=== PATIENT | female | born 1995 | race Caucasian/White ===

== ENCOUNTER 2024-09-12 18:55 | Outpatient (CLI) | payer BC, SELFPAY ==
[2024-09-12 19:25] VITALS: BP 91/55; PULSE 87
--- NOTE | 2024-09-12 19:40 | PC.NURSE ---
Pt reported she fell down staircase at 1815. She reported that she fell mostly on her buttocks and did hit her head initially. Denies headache or pain in head and/or neck. Pain is mostly in her tailbone and right arm. Ice pack applied to tailbone area. Right arm is swollen compared to left arm. Has a bruise on inner forearm and small amount of rug burn. At this time she does not want to be evaluated in the ER. 'I do not feel like it is broken.Ashly in unit and updated.
--- NOTE | 2024-09-12 21:24 | P.OBO_ITS ---
OB Outpatient HPI History of Present Illness History of Present Illness: Gabriel is a 29 year old at 28 0/7 weeks gestation by LMP of 02/27/2024, ROSALBA 12/05/2024, presents post fall for monitoring. The fall occurred at 1815 this evening. She reports she was trying to go down the stairs and missed her step and bounced on her butt the rest of the way. She said approximately 12 steps, about the length of a normal staircase. Her steps are very tall. She does admit she did hit her head initially but not again during the fall. She denies any leaking of fluid or bleeding but has pain in her butt, hip, and right arm. She was unable to sit when she arrived due to the pain but declined evaluation in the ED. She was encouraged to try to lay down on her side for monitoring and rest. She does not feel anything is broken. We reviewed plan for monitoring and s/sx to report. Again offered and recommended ED evaluation but patient declines. Zehra has received care at [facility] in the [facility], although she lives in town. Records were not available upon arrival but were faxed while she was on the unit. Reviewed and sent to scanning. Problem List: GDM, A2 CODY Hx of Triploidy 69, XXY NIPT WNL Blood type: O+, antibody screen negative.??? Hgb (04/26/24): 13.1??? Platelets: 223??? Rubella: Immune??? Varicella: Immune? RPR: non-reactive??? HBsAg: non-reactive??? Hep C: negative? HIV: negative??? GC/Chlamydia: negative/negative? Pap (): [negative]??? Genetic screening: NIPT? 1hr gtt: 155 3 hour gct: fasting 105, 1 hour: 191, 2 hour: 129, 3rd value not collected as there were already 2 abnormals??? Baby moving naturally: Yes Bleeding: No Contractions: No Leaking fluid: No Discharge: No Heartburn: No Back pain: Yes (buttock, hip, and arm) Meds Home Medications and Allergies Allergies Allergy/AdvReac Type Severity Reaction Status Date / Time sulfamethoxazole (From Allergy Mild Verified 09/12/24 22:43 Bactrim) trimethoprim (From Bactrim) Allergy Mild Verified 09/12/24 22:43 PFSH Social History Smoking Status: Former smoker History History 3 Elective abortions Para 1 Spontaneous abortions Hx # Term Pregnancies Ectopic pregnancies Hx # Pregnancies Multiple births Number of Living Children 1 OB - H&P: Exam Physical Exam Vital signs: Pulse BP 87 91/55 L 09/12/24 19:25 09/12/24 19:25 Assessment and Plan Assessment and plan (1) Abdominal trauma: Status: Acute (2) Fall (on) (from) other stairs and steps, initial encounter: Status: Acute (3) : Status: Acute (4) 28 weeks gestation of : Status: Acute Plan at 28 0/7 weeks gestation Fall down stairs, abdominal trauma Blood Type O+, Rhogam not indicated Reviewed warning s/sx of abruption and when to seek emergency care ED evaluation recommended and declined by patient Monitoring x 4 hours post fall per protocol, would only extend if patient had palpable/monitored contractions. D/c home if stable after 4 hours
--- NOTE | 2024-09-12 23:04 | PC.OBNST ---
NST Note NST Note Start: 09/12/24 19:18 Freq: ONCE Status: Active Protocol: Document 09/12/24 23:02 RRP (Rec: 09/12/24 23:04 RR [id number]) NST Note 3 Para (# of births) 1 EDC 12/05/24 Gestational Age In 28 Weeks & 0 Days Weeks & Days Patient Presented Other with Complaint(s) of If Observation after fell downstairs an injury, describe Reactive Yes Appropriate for Yes Gestational Age JARRED Cutler RN Date 09/12/24 Reactive Yes Appropriate for Yes Gestational Age JARRED Hoffmann RN Date 09/12/24 OB NST charge Yes Complete NST Note Yes via Write Note The provider's electronic signature indicates the NST is reactive/appropriate for gestational age. *Note to provider: If an addendum is required, open the patient's chart and click on the note under the Nurse/Allied Health tab.
== END 2024-09-12 22:45 | disposition home or self-care (01) ==
LOC: OB OUT 18:55 → OB 19:02
PROVIDERS: Visit Provider Advanced Practice Midwife
DX: O26.893 Other specified pregnancy related conditions, third trimester (principal); S39.91XA Unspecified injury of abdomen, initial encounter; Z3A.28 28 weeks gestation of pregnancy
CPT/HCPCS: 59025; G0463

== ENCOUNTER 2024-11-11 12:14 | Outpatient (CLI) | payer BC, SELFPAY ==
--- NOTE | 2024-11-11 12:15 | CRLHL7_ITS ---
For Patients: As a result of the Century Cures Act, medical imaging exams and procedure reports are released immediately into your electronic medical record. You may view this report before your referring provider. If you have questions, please contact your health care provider. OB ULTRASOUND BIOPHYSICAL PROFILE ROSALBA by US: 12/05/2024. GA: 36 w, 4 d. Single. Comparison: None. Surgery: None. INDICATION: GDM. TECHNIQUE: Real time macias scale imaging of the fetus was performed. Transabdominal. CERVIX: Not visualized. POSITIONING: Vertex. AMNIOTIC FLUID: 6.1 cm. SDP (N: greater than 2 x 1 cm) BIOPHYSICAL PROFILE: Total score: 2. Gross body movements: 2. tone: 2. Respiratory activity: 2. Amniotic fluid: 2. (SDP N: greater than 2 x 1 cm) Total: 10/11. PLACENTA: Technique: Transabdominal. PLACENTA POSITION: Anterior. DOPPLER: heart rate: 167 bpm. BIOMETRY: BPD: 8.9 cm. 36 w, 0 d, 45 percent. HC: 32.2 cm. 36 w, 2 d, 17 percent. AC: 32.9 cm. 36 w, 6 d, 70 percent. FL: 7.0 cm. 35 w, 6 d, 29 percent. FL/AC ratio: 21.23 percent. HC/AC ratio: 0.98. EFW: 2936 g. Weight: 6 lbs, 8 oz. age by this US: 36 w, 2 d. ROSALBA by this US: 12/07/2024. Percentile by ROSALBA: 50 percent. IMPRESSION: 1. Normal biophysical profile 10/11. 2. Sonographic gestational age 36 weeks 2 days and sonographic due date 12/07/2024. Good correlation with dates. Normal interval growth. 3. Estimated weight 50th percentile. Abdominal circumference 70th percentile. Charanjit Horton M.D. Diagnostic Radiologist [email or web address] JR/Dictated by: Charanjit Horton MD @ 11/11/2024 1:11:00 PM (Electronically Signed)
== END 2024-11-11 12:15 | disposition home or self-care (01) ==
LOC: US 12:14
PROVIDERS: Visit Provider Obstetrics & Gynecology
DX: O24.419 Gestational diabetes mellitus in pregnancy, unspecified control (principal); Z3A.36 36 weeks gestation of pregnancy
CPT/HCPCS: 76815; 76819

== ENCOUNTER 2024-11-13 16:22 | Inpatient (IN) | payer BC, SELFPAY ==
[2024-11-13 16:42] VITALS: BP 125/76; PULSE 106
[2024-11-13 16:49] VITALS: BMI 35.6
--- NOTE | 2024-11-13 16:57 | PM.OBHPLI ---
OB - H&P: HPI Labor/Induction History of Present Illness Time Seen by Provider: 16:58 Date Seen: 11/13/24 Chief complaint: IOL uncontrolled GDMA2 Narrative: Gabriel is a 29 year old 3 para 1 at 36w6d GA by first trimester US, who presents for scheduled induction of labor in the setting of poorly controlled GDM A2. is complicated by GDM A2 (on 91u NPH at bedtime, 4-5 units humalog at meals) and GBS positivity. Early term delivery was recommended in the setting of poor GDM control, please see H&P by Dr. Humphries and office visit by Dr. Borjas for complete details. Patient does endorse intermittent contractions, described as tightening with some cramping. She notes these are regular. Denies vaginal bleeding or leaking of fluid. Endorses active movement. She affirms that she is currently taking 91u NPH insulin QHS. Plan to administer half of this tonight, where we will follow our unit GDM A2 protocol with fasting and 2 hour postprandial blood glucose checks with sliding scale insulin in latent labor. Discussed insulin drip could be required when in active labor pending BG control. Recommend continuous monitoring. Explained she is at an increased risk of shoulder dystocia in the setting of poorly controlled GDM A2. Last growth ultrasound on 10/18/2024: EFW 2270 g at 60th percentile, AC at 89th percentile. Had an 10/11 BPP Here on 11/11, MVP 6.1cm. Specific Issues/Plans Transfer at 36 1/7 weeks gestation from [facility]. [place]. Recently moved to [place]. G 3 P 1011 Partner: [] H&P: 11/08/24, CGM-BRENT visit # GDMA2, history of diet controlled GDM during first Started on insulin at 28 weeks: NPH 12 units at night time, currently utilizing 91 units, told to decrease to 89 units 11/08/24. Also, utilizing Humalog 5 units with breakfast, 4 units with lunch and dinner. Growth US every 4 weeks Twice weekly testing-scheduling form completed 11/08/24 IOL at 37 weeks, IOL request sent for 11/13/24 cervical ripening. # History of miscarriage in 2023 D&C, 67 XXY Reason for which she was originally sent to [facility] during this current . # History of anxiety, MDD currently controlled w/o medication # Adopted # History of migraines labs 12/26/2023 and 04/26/24: Blood type: O positive, antibody screen negative Hemoglobin: 13.1 Platelets: 223 Rubella: Immune Varicella: Not available RPR: Nonreactive Hep B sAg: Negative Hep B sAb: Negative, non immune Hep C Ab: Negative HIV: Negative HbA1c: 5.5 Urine culture: Negative GC/Chlamydia: Negative/negative Genetic testing: [place], low risk-female. 1 hr GTT: 08/27/2024: 155, 3hr GTT: 105/191/129 3rd trimester Hb: 11.3 GBS: 11/05/24 Positive Imaginst trimester: 04/10/2024: Single intrauterine gestation at 5 weeks 6 days, heart rate: 89 beats per minute. ROSALBA: 12/05/2024. Small subchorionic hemorrhage. 04/12/2024: Single living IUP with gestational age consistent of 6 weeks 1 day, heart rate 118 beats per minute. 04/18/2024: Single intrauterine at 7 weeks 0 days, heart rate 132 beats per minute. Indeterminate nodular focus in the mid endometrium measuring up to 1 cm which demonstrates internal vascularity, possibly an endometrial polyp. Recommend post follow-up. 05/06/2024: Single living intrauterine gestation 9 weeks 4 days. heart rate 179 beats per minute. Anatomy scan [facility]: 05/30/2024: Intrauterine at 13 weeks 0 days, early detailed anatomic survey is normal. Anterior placenta. Level 2 ultrasound completed 07/18/2024: Single intrauterine , breech presentation, normal amount of amniotic fluid, anterior placenta with normal umbilical cord insertion. Not previa. BPD: 35 percentile, HC: 25 percentile, AC: 70th percentile, FL: 54th percentile. EFW 70 percentile. Normal anatomy. Normal cervical length. Continue routine care. Growth ultrasounds/ testin09/24/2024: BPD: 6 percentile, HC: 13 percentile, AC: 68 percentile, FL: 40 percentile. EFW: 48th percentile. NAYE: 8.7 cm 10/14/2024: BPP 8/8, NAYE: 14.9 cm. Vertex. 10/18/2024: BPP 8/8, EFW: 2270 g, 60th percentile. BPD: 17 percentile, HC: 21 percentile AC: 89th percentile, SL: 27th percentile. Vertex, NAYE: 15.6 cm. 10/21/2024: BPP 8/8, NAYE: 14.9 cm, vertex. 10/25/2024: BPP 8/8, NAYE: 16 cm, vertex. 10/29/2024: BPP 8/8, NAYE: 11.4 cm, vertex. 11/05/2024: BPP 8/8, NAYE: 15.2 cm, vertex Others: AFP low risk. Vaccinations: COVID: declined Flu: Declined Tdap: 09/16/2024 RSV: [] 32 week mental health: N/A Meds Home Medications and Allergies Home Medications ?Medication ?Instructions ?Recorded ?Confirmed ?Type PNV no.151-iron 27 mg-folic 800 cap PO QDAY 11/08/24 11/11/24 History mcg-omega3 260 vw-omu-qop-fish capsule ( Multi-DHA (with vitamin K)) insulin NPH isoph U-100 human 100 54 unit subcut QPM 11/08/24 11/11/24 History unit/mL subcutaneous suspension (Novolin N NPH U-100 Insulin isophane) insulin lispro 100 unit/mL 4 unit subcut QAM 11/08/24 11/11/24 History subcutaneous pen insulin syr/ndl U100 half leticia #10 ea 11/08/24 11/11/24 History 0.3mL 31 gauge x 15/64 insulin syringe-needle U-100 1 mL #10 ea 11/08/24 11/11/24 History 31 gauge x 15/64 (Ultra-Fine Insulin Syringe) pen needle, diabetic 32 gauge x #1,200 ea 11/08/24 11/11/24 History 5/32 (UltiCare Pen Needle) Allergies Allergy/AdvReac Type Severity Reaction Status Date / Time sulfamethoxazole (From Allergy Mild Verified 11/13/24 16:50 Bactrim) trimethoprim (From Bactrim) Allergy Mild Verified 11/13/24 16:50 OB - H&P: Exam Physical Exam: Vital signs: Pulse BP 106 H 125/76 11/13/24 16:42 11/13/24 16:42 Narrative: Physical exam: General: No acute distress Psych: Alert and oriented x3, full affect Abdomen: Gravid. Otherwise soft and nontender. heart rate: Reactive NST. Baseline of 130 beats per minute, moderate variability, accelerations present, decelerations absent. [place]: Intermittent contractions Cervix: 1/50/-3. Cook catheter placed without difficulty, 60/60cc instilled Presentation: Vertex by SVE OB - Problem Based A/P Additional Plan (1) GDM, class A2: Status: Acute (2) : Status: Acute (3) CODY (generalized anxiety disorder): Status: Acute Plan Gabriel is a 29yo at 36w6d GA admitted for IOL in the setting of poorly controlled GDMA2. is otherwise complicated by anxiety and migraines. - Cervix is 1/50/-3 on admission. We reviewed options for cervical ripening, including PV Cytotec versus catheter with low-dose Pitocin overnight. After discussions of risks/benefits, patient elected to proceed with a Cook placement. This was performed and was uncomplicated at 1715. Plan to start low-dose Pitocin overnight, starting at 0000 given multiparity. - Continuous monitoring ongoing for GDMA2. - Plan to administer half of her outpatient insulin regimen, with 45u NPH at bedtime. She typically takes 91u at bedtime. Plan GDMA2 BG monitoring protocol and sliding scale insulin as needed. - Patient is a candidate for morphine/Vistaril overnight, or pain control per patient preference. Ultimately, desires epidural. - Last growth ultrasound on 10/18/2024: EFW 2270 g at 60th percentile, AC at 89th percentile. - Discussed risks of shoulder dystocia in the setting of suboptimally controlled GDMA2. Explained maneuvers to alleviate shoulder dystocia and maternal/ risks if they were to occur. Patient is appropriately worried about this risk, but I did explained we are supportive of IOL plan as she does have indication for C/S given GDMA2 and normal EFW. - GBS positive, start ampicillin with ROM or initiation of pitocin - BT O+, obtain T/S on admission
[2024-11-13 19:35] VITALS: BP 113/68; PULSE 115; TEMP 37
[2024-11-13] MEDS: INSULIN ASPART 100 UNIT/ML SUBCUT (20:39)
[2024-11-13] MEDS: INSULIN NPH 100 UNIT/ML 45 UNIT SUBCUT (21:38)
[2024-11-14] VITALS (125 sets, daily range): BP systolic 96–145; BP diastolic 50–75; PULSE 72–125; RESP 12–20; TEMP 36.5–37.1; O2SAT 89–100
[2024-11-14] MEDS: LACTATED RINGERS 1000 ML 1,000 ML 75 ML IV (00:17)
[2024-11-14] MEDS: OXYTOCIN 30 unit/500 ML in NS 30 UNIT/500 ML BAG IVPB (00:28)
[2024-11-14 05:39] LABS: Hematocrit* 38.3 % (33.0-51.0); Hemoglobin* 12.8 gm/dL (12.0-16.0); Immature Granulocytes Pct Auto 0.4 %; Mean Corpuscular HGB Conc 33 gm/dL (32-36); Mean Corpuscular Hemoglobin 28 pg (26-34); Mean Corpuscular Volume 84 fL (80-100); RDW Coefficient of Variation % 13.8 % (11.5-15.5); Red Blood Count* 4.57 m/uL (4.00-5.20); White Blood Count* 11.76 K/uL (4.50-11.00)
[2024-11-14 05:43] LABS: Immature Granulocytes Abs Auto 0.00 K/uL (0.00-0.30); Lymphocytes Absolute Auto 1.70 K/uL (0.90-2.90); Slide Review Reflex No
[2024-11-14] MEDS: AMPICILLIN 2 GM in 0.9 % SODIUM CHLORIDE Mini-bag 100 ML IVPB (07:50)
--- NOTE | 2024-11-14 08:12 | P.OBPN_ITS ---
Subjective Time Seen by Provider: 08:12 Date Seen: 11/14/24 Narrative: In pain. Objective Vital Signs: Last Vital Signs Temp 97.9 F 11/14/24 07:29 Pulse 85 11/14/24 07:33 BP 108/67 11/14/24 07:33 Pelvic Exam Dilation (cm): 5.5 Effacement (%): 80 Station: -1 Contractions Monitor mode: External Contraction pattern: Regular Contraction intensity: Strong/Firm Pitocin Rate (mU/min): 8 Assessment Assessment: induction ongoing Station: -1 Status: Category l Heart Rate Baseline: 145 Chief Writer Variability: Moderate (6-25) Monitor Accelerations: Present Monitor Decelerations: None Labor Progress: Adequate Plan Plan: 1. IOL: continue IV Oxytocin titration, progressing well. 2. GBS positive: Antibiotics just started, will await 4 hours for AROM. 3. Pain management: In significant pain, wanted to be checked before moving to epidural, she is ready for epidural now. Nurses will call anesthesia. 4. GDMA2: NPH 45 units given last night, 2 hr after dinner elevated BS at 161 and per sliding scale 4 units of Aspart were given. This am BS normal at 75. Move to active phase of labor monitoring of BS. Will FU closely. 5. Continuous monitoring category 1.
[2024-11-14] MEDS: LACTATED RINGERS 1000 ML 1,000 ML 1200 ML IV (08:38)
[2024-11-14] MEDS: LIDOCAINE 2% (PF) 5 ML VIAL EPIDURAL (09:06)
[2024-11-14] MEDS: ROPIVACAINE 0.2 % PF 10 ML INJ 20 MG EPIDURAL (09:06)
--- NOTE | 2024-11-14 09:12 | P.ANBPRC_ITS ---
[facility] Medical History (Updated 11/08/24 @ 15:17 by Mili Humphries MD) History of miscarriage ?Z87.59 - Personal history of other complications of , childbirth and the puerperium (ICD-10) Benign neoplasm of skin ?D23.9 - Other benign neoplasm of skin, unspecified (ICD-10) Abdominal trauma ?S39.91XA - Unspecified injury of abdomen, initial encounter (ICD-10) Surgical History (Updated 11/08/24 @ 15:31 by Mili Humphries MD) H/O dilation and curettage ?Z98.890 - Other specified postprocedural states (ICD-10) [place] teeth removed ?K08.409 - Partial loss of teeth, unspecified cause, unspecified class (ICD- 10) Family History Mother Depression Schizophrenia Alcohol abuse Bipolar 1 disorder Father Alcohol abuse Sister ADHD Social History (Updated 11/08/24 @ 15:38 by Mili Humphries MD) Narrative: Patient is , no baptist or cultural needs, except blood transfusion in case of an emergency, no chemical radiation exposure, pre vaping, not currently, pre social alcohol use, not currently, no recreational drug use. What is your current living situation?: I presently have a place to live Problems where you live: no known problems In the past 12 months, utilities in danger of being shut off: no In past 12 months, lack of transportation kept you from medical appts, meetings, work, or getting things needed for daily living: no In the past 12 mos, have been you worried that your food would run out before you had money to buy more?: never true In the past 12 mos, the food you bought just didn't last and you didn't have money to buy more?: never true Smoking Status: Never smoker How often does anyone, including family, friends and others, physically hurt you : never How often does anyone, including family, friends and others, insult or talk down to you: never How often does anyone, including family, friends and others, threaten you with harm: never How often does anyone, including family, friends and others, scream or curse at you: never Meds Home Medications and Allergies Home Medications ?Medication ?Instructions ?Recorded ?Confirmed ?Type PNV no.151-iron 27 mg-folic 800 1 cap PO QDAY 11/08/24 11/13/24 History mcg-omega3 260 sd-kse-jxn-fish capsule ( Multi-DHA (with vitamin K)) insulin NPH isoph U-100 human 100 54 unit subcut QPM 0 11/08/24 11/13/24 History unit/mL subcutaneous suspension (Novolin N NPH U-100 Insulin isophane) insulin lispro 100 unit/mL 4 unit subcut QAM 11/08/24 11/13/24 History subcutaneous pen insulin syr/ndl U100 half leticia #10 ea 11/08/24 5 History 0.3mL 31 gauge x 15/64 insulin syringe-needle U-100 1 mL #10 ea 11/08/2411/04 History 31 gauge x 15/64 (Ultra-Fine Insulin Syringe) pen needle, diabetic 32 gauge x #1,200 ea 11/08/2412/28 History 5/32 (UltiCare Pen Needle) Allergies Allergy/AdvReac Type Severity Reaction Status Date / Time sulfamethoxazole (From Allergy Mild Verified 11/13/24 16:50 Bactrim) trimethoprim (From Bactrim) Allergy Mild Verified 11/13/24 16:50 Results Labs Labs: Laboratory Results - last 24 hr 11/14/24 05:25 WBC 11.76 H RBC 4.57 Hgb 12.8 Hct 38.3 MCV 84 MCH 28 MCHC 33 RDW Coeff of Sayda 13.8 Plt Count 178 Neut % (Auto) 75.8 H Lymph % (Auto) 14.8 L [place] % (Auto) 8.4 Eos % (Auto) 0.4 Baso % (Auto) 0.2 Neut # (Auto) 8.90 H Lymph # (Auto) 1.70 [place] # (Auto) 1.00 H Eos # (Auto) 0.00 Baso # (Auto) 0.00 Abs Immat Gran (auto) 0.00 Imm/Tot Granulo (auto) 0.4 Blood Type O Positive Antibody Screen NEGATIVE Vital Signs Vital Signs: Last Vital Signs Temp 97.9 F 11/14/24 07:29 Pulse 88 11/14/24 09:10 Resp 16 11/14/24 08:35 BP 114/59 L 11/14/24 09:10 Pulse Ox 94 11/14/24 09:08 Weight: 94.347 kg Height: 162.56 cm Anesthesia Procedures Epidural Insertion Patient Location: OB Start Time: 08:45 Stop Time: 09:13 Start Date: 11/14/24 Stop Date: 11/14/24 Reason for Block: procedure for pain Patient Position: sitting Performed By: Mika Storm Preanesthetic Checklist: IV checked, risks and benefits discussed, surgical consent, monitors and equipment checked, pre-op evaluation, timeout performed and anesthesia consent Prep: chlorhexidine gluconate Monitoring: blood pressure monitoring, continuous pulse oximetry and heart rate Approach: midline Vertebral Space: lumbar (1-5) Epidural Technique: MARILY air Needle Type: Tuohy needle Injection Technique: continuous catheter Needle gauge: 17 Needle Length (cm): 10 cm Needle Insertion Depth (cm): 7 Catheter Gauge: 19 Catheter Type: multi-orifice Catheter at skin depth (cm): 13 Test Dose Result: negative and lidocaine 1.5% with epinephrine 1 to 200,000
[2024-11-14] MEDS: ROPIVACAINE 0.2% 100 ml 100 ML 12 MG EPIDURAL (09:15)
[2024-11-14] MEDS: AMPICILLIN 1 GM in 0.9 % SODIUM CHLORIDE Mini-bag 100 ML IVPB (11:45)
--- NOTE | 2024-11-14 14:30 | W.PM.OBVAGDE ---
OB Procedure Vag Delivery Mother Details Mother Details: The patient is a 29 year-old, 3, Para 1, admitted on 11/13/24 at 36 6/7 Days gestation for IOL due to uncontrolled GDMA2. IOL started last night with placement of cook catheter and IV Oxytocin. Patient progressed normally and SROM occurred at around 12pm today. Shortly after this started to experience significant pressure and was found completely dilated. Pushed effectively and had a vaginal delivery. : 3 Para: 2 Weeks Gestation: 37 Admission Date: 11/13/24 Additional Details Amniotic Membrane Status: SROM Amniotic Membrane Rupture Date: 11/14/24 Amniotic Membrane Rupture Time: 12:00 Amniotic Membrane Fluid Description: Clear Analgesia/Anesthesia Type: Epidural and Nitrous Oxide Waterbirth: No Pitcoin: Yes Intrapartal Events: Labor Induction Induction Method: Intracervical balloon catheter and per pitocin protocol Labor Onset: 08:05 Complete: 13:17 Pushin:22 Heart: heart tones during second stage were category 2. Shortly after SROM NST showed early/variable decelerations that were not deep and moderate variability in between contractions. Variable decelerations noted to be more deep with every contraction at around 1pm, she was found a rim and shortly after this at 1:17pm was found complete. Patient did start pushing and pushing effectively with progressive descent noted. Upon my arrival at patient's room a small crown could be seen at around 1:30pm. Heart rate acceleration noted in between contractions. With last contraction and large crown heart rate remained on the 70s for a bit longer than previous and recommendation was given to push again and head delivered, 2 nuchal cords noted that were easily reduced and the rest of the body was then assisted and delivered. Delivery Details Delivery Date: 11/14/24 Delivery Time: 13:39 Route of delivery: Gender: Female Viability: Alive; Heart Rate Present Position at Delivery: OA Delivery Details: Delivered via spontaneous vaginal delivery. was placed on maternal abdomen.? Cord was clamped and cut after a 30-60 second delay. Nose and mouth were bulb suctioned.? weight pending. 1 Minute Interval Total Score: 8 5 Minute Interval Total Score: 9 Additional Details Shoulder Dystocia: No Placenta Delivery Time: 13:53 Placental Delivery Description: Spontaneous Delivery repair: Vicryl Procedure Done: Global Blood Loss: 300 Laceration: Perineal - 2nd Degree Episiotomy Description: None Blood Loss Measurement Type: QBL Bakri Used: No Sponge/Need Count Correct: Yes Cord Vessel Description: 3 Vessels and Nuchal Cord (x2) Event Summary Status: Mother and infant were stable after delivery. Disposition: floor
[2024-11-14] MEDS: IBUPROFEN 600 MG TABLET PO ×2 (14:58→23:39)
[2024-11-14] MEDS: ACETAMINOPHEN 500 MG TABLET 1000 MG PO (20:16)
[2024-11-15] MEDS: ACETAMINOPHEN 500 MG TABLET 1000 MG PO (02:41)
[2024-11-15 06:12] VITALS: BP 98/61; PULSE 63; RESP 16; TEMP 36.6; O2SAT 98
[2024-11-15] MEDS: IBUPROFEN 600 MG TABLET PO ×2 (06:12→12:07)
[2024-11-15 06:28] LABS: Hemoglobin* 11.7 gm/dL (12.0-16.0)
[2024-11-15 08:15] VITALS: BP 94/67; PULSE 85; RESP 18; TEMP 37.1; O2SAT 98
--- NOTE | 2024-11-15 08:49 | PM.ANPOST ---
Post Anesthesia Note Post Anesthesia Note Patient seen: Inpatient Respiratory Status: adequate Cardiovascular Status: adequate Mental Status: baseline Pain: adequate Temp: baseline Anesthetic awareness: N/A Complications: none Follow care: none
--- NOTE | 2024-11-15 09:26 | PM.OBDSVD1 ---
DS: Providers Provider Time Seen by Provider: 07:45 Date Seen: 11/15/24 Date of admission: 11/13/24 16:22 Primary care physician: Not a Local Provider Admitting Clinician: Christina Bey MD Attending Physician on discharge: Delores Delgado CNM Date of Discharge: 11/15/24 DS: Diagnosis Discharge Diagnosis (1) care and examination of lactating mother: Status: Acute (2) CODY (generalized anxiety disorder): Status: Acute Exam Narrative: Exam Narrative: GENERAL APPEARANCE:? normal affect, alert, no distress? MOOD:? appropriate? CHEST:? clear to auscultation and percussion? HEART:? regular rate and rhythm? BREASTS: soft, nontender, no erythema, nipples intact? ABDOMEN:? soft, non-tender the uterine fundus is firm and is appropriate for the stage of recovery.? PERINEUM:? mild edema of the perineum, there is a 2nd degree lac that is healing well.? EXTREMITIES:? normal and no edema? Const: Vital Signs, click to edit/add: Vital Signs - 24 hr 11/14/24 09:28 11/14/24 09:30 11/14/24 09:33 Temperature Pulse Rate 81 83 Pulse Rate [Pulse Oximeter] Respiratory Rate Blood Pressure 108/54 L 109/59 L Blood Pressure [Le ft Arm] Pulse Oximetry 94 100 Oxygen Delivery [facility] 11/14/24 09:38 11/14/24 09:43 11/14/24 09:46 Temperature Pulse Rate 74 Pulse Rate [Pulse Oximeter] Respiratory Rate Blood Pressure 112/59 L Blood Pressure [Le ft Arm] Pulse Oximetry 100 100 Oxygen Delivery [facility] 11/14/24 09:48 11/14/24 09:53 11/14/24 09:58 Temperature Pulse Rate Pulse Rate [Pulse Oximeter] Respiratory Rate Blood Pressure Blood Pressure [Le ft Arm] Pulse Oximetry 100 100 100 Oxygen Delivery [facility] 11/14/24 10:02 11/14/24 10:03 11/14/24 10:08 Temperature Pulse Rate 83 Pulse Rate [Pulse Oximeter] Respiratory Rate Blood Pressure 106/59 L Blood Pressure [Le ft Arm] Pulse Oximetry 100 100 Oxygen Delivery [facility] 11/14/24 10:13 11/14/24 10:17 11/14/24 10:18 Temperature Pulse Rate 82 Pulse Rate [Pulse Oximeter] Respiratory Rate Blood Pressure 122/59 L Blood Pressure [Le ft Arm] Pulse Oximetry 100 92 98 Oxygen Delivery [facility] 11/14/24 10:23 11/14/24 10:30 11/14/24 10:32 Temperature Pulse Rate 72 Pulse Rate [Pulse Oximeter] Respiratory Rate Blood Pressure 115/61 Blood Pressure [Le ft Arm] Pulse Oximetry 100 98 Oxygen Delivery [facility] 11/14/24 10:34 11/14/24 10:35 11/14/24 10:41 Temperature Pulse Rate Pulse Rate [Pulse Oximeter] Respiratory Rate Blood Pressure Blood Pressure [Le ft Arm] Pulse Oximetry 94 92 96 Oxygen Delivery [facility] 11/14/24 10:44 11/14/24 10:46 11/14/24 10:47 Temperature 98 F Pulse Rate 85 Pulse Rate [Pulse Oximeter] Respiratory Rate Blood Pressure 104/55 L Blood Pressure [Le ft Arm] Pulse Oximetry 97 Oxygen Delivery [facility] 11/14/24 10:51 11/14/24 10:56 11/14/24 11:01 Temperature Pulse Rate Pulse Rate [Pulse Oximeter] Respiratory Rate Blood Pressure Blood Pressure [Le ft Arm] Pulse Oximetry 97 97 97 Oxygen Delivery [facility] 11/14/24 11:02 11/14/24 11:06 11/14/24 11:11 Temperature Pulse Rate 77 Pulse Rate [Pulse Oximeter] Respiratory Rate Blood Pressure 97/50 L Blood Pressure [Le ft Arm] Pulse Oximetry 97 97 Oxygen Delivery [facility] 11/14/24 11:16 11/14/24 11:21 11/14/24 11:26 Temperature Pulse Rate 86 Pulse Rate [Pulse Oximeter] Respiratory Rate Blood Pressure 99/53 L Blood Pressure [Le ft Arm] Pulse Oximetry 97 96 97 Oxygen Delivery [facility] 11/14/24 11:31 11/14/24 11:36 11/14/24 11:41 Temperature Pulse Rate 92 Pulse Rate [Pulse Oximeter] Respiratory Rate Blood Pressure 104/58 L Blood Pressure [Le ft Arm] Pulse Oximetry 96 97 97 Oxygen Delivery [facility] 11/14/24 11:46 11/14/24 11:51 11/14/24 11:56 Temperature Pulse Rate 96 Pulse Rate [Pulse Oximeter] Respiratory Rate Blood Pressure 112/57 L Blood Pressure [Le ft Arm] Pulse Oximetry 97 97 98 Oxygen Delivery [facility] 11/14/24 12:01 11/14/24 12:06 11/14/24 12:11 Temperature Pulse Rate 98 Pulse Rate [Pulse Oximeter] Respiratory Rate Blood Pressure 112/55 L Blood Pressure [Le ft Arm] Pulse Oximetry 99 100 99 Oxygen Delivery [facility] 11/14/24 12:16 11/14/24 12:21 11/14/24 12:26 Temperature Pulse Rate 88 Pulse Rate [Pulse Oximeter] Respiratory Rate Blood Pressure 114/69 Blood Pressure [Le ft Arm] Pulse Oximetry 99 100 100 Oxygen Delivery [facility] 11/14/24 12:31 11/14/24 12:34 11/14/24 12:36 Temperature 98.5 F Pulse Rate 93 Pulse Rate [Pulse Oximeter] Respiratory Rate 20 Blood Pressure 113/68 Blood Pressure [Le ft Arm] Pulse Oximetry 100 97 Oxygen Delivery [facility] 11/14/24 12:41 11/14/24 12:46 11/14/24 12:51 Temperature Pulse Rate 93 Pulse Rate [Pulse Oximeter] Respiratory Rate Blood Pressure 113/73 Blood Pressure [Le ft Arm] Pulse Oximetry 97 97 100 Oxygen Delivery [facility] 11/14/24 12:56 11/14/24 13:01 11/14/24 13:06 Temperature Pulse Rate Pulse Rate [Pulse Oximeter] Respiratory Rate Blood Pressure Blood Pressure [Le ft Arm] Pulse Oximetry 99 99 99 Oxygen Delivery [facility] 11/14/24 13:11 11/14/24 13:16 11/14/24 13:21 Temperature Pulse Rate Pulse Rate [Pulse Oximeter] Respiratory Rate Blood Pressure Blood Pressure [Le ft Arm] Pulse Oximetry 100 100 100 Oxygen Delivery [facility] 11/14/24 13:26 11/14/24 13:31 11/14/24 13:36 Temperature Pulse Rate 109 H Pulse Rate [Pulse Oximeter] Respiratory Rate Blood Pressure 144/63 H Blood Pressure [Le ft Arm] Pulse Oximetry 100 99 100 Oxygen Delivery [facility] 11/14/24 13:41 11/14/24 13:46 11/14/24 13:51 Temperature Pulse Rate 90 Pulse Rate [Pulse Oximeter] Respiratory Rate Blood Pressure 145/63 H Blood Pressure [Le ft Arm] Pulse Oximetry 100 100 100 Oxygen Delivery [facility] 11/14/24 13:53 11/14/24 13:53 11/14/24 13:56 Temperature 98.8 F Pulse Rate 91 Pulse Rate [Pulse Oximeter] Respiratory Rate 16 Blood Pressure 101/50 L Blood Pressure [Le ft Arm] [facility] 14[facility] 11/14/24 14:01 11/14/24 14:06 Temperature Pulse Rate 81 Pulse Rate [Pulse Oximeter] Respiratory Rate 16 Blood Pressure 100/55 L Blood Pressure [Le ft Arm] Pulse Oximetry 100 [facility] 14:11 11/14/24 14:15 11/14/24 14:16 Temperature Pulse Rate 90 Pulse Rate [Pulse Oximeter] Respiratory Rate 16 Blood Pressure 110/63 Blood Pressure [Le ft Arm] Pulse Oximetry 100 100 Oxygen Delivery [facility] 11/14/24 14:21 11/14/24 14:26 11/14/24 14:30 Temperature Pulse Rate Pulse Rate [Pulse Oximeter] Respiratory Rate 16 Blood Pressure Blood Pressure [Le ft Arm] Pulse Oximetry 100 [facility]/24 14:31 11/14/24 14:36 11/14/24 14:41 Temperature Pulse Rate 98 Pulse Rate [Pulse Oximeter] Respiratory Rate Blood Pressure 107/55 L Blood Pressure [Le ft Arm] Pulse Oximetry 100 100 [facility]/14/24 14:45 11/14/24 14:46 11/14/24 14:51 Temperature Pulse Rate 88 Pulse Rate [Pulse Oximeter] Respiratory Rate 16 Blood Pressure 116/61 Blood Pressure [Le ft Arm] Pulse Oximetry 100 [facility]/14/24 14:56 11/14/24 15:00 11/14/24 15:01 Temperature Pulse Rate 104 H Pulse Rate [Pulse Oximeter] Respiratory Rate 16 Blood Pressure 108/59 L Blood Pressure [Le ft Arm] Pulse Oximetry 100 [facility]/14/24 15:06 11/14/24 15:11 11/14/24 15:15 Temperature Pulse Rate Pulse Rate [Pulse Oximeter] Respiratory Rate 16 Blood Pressure Blood Pressure [Le ft Arm] Pulse Oximetry 100 [facility]/14/24 15:16 11/14/24 15:21 11/14/24 15:26 Temperature Pulse Rate 91 Pulse Rate [Pulse Oximeter] Respiratory Rate Blood Pressure 119/61 Blood Pressure [Le ft Arm] Pulse Oximetry 100 100 100 Oxygen Delivery [facility] 11/14/24 15:30 11/14/24 15:31 11/14/24 15:36 Temperature Pulse Rate 88 Pulse Rate [Pulse Oximeter] Respiratory Rate 16 Blood Pressure 112/58 L Blood Pressure [Le ft Arm] Pulse Oximetry 100 100 Oxygen Delivery [facility] 11/14/24 15:41 11/14/24 15:45 11/14/24 15:46 Temperature 98.7 F Pulse Rate 101 H Pulse Rate [Pulse Oximeter] Respiratory Rate 16 Blood Pressure 109/57 L Blood Pressure [Le ft Arm] Pulse Oximetry 100 99 Oxygen Delivery [facility] 11/14/24 17:51 11/14/24 20:12 11/14/24 23:44 Temperature 98.0 F 97.7 F 97.9 F Pulse Rate Pulse Rate [Pulse Oximeter] 94 108 H 81 Respiratory Rate 12 18 16 Blood Pressure Blood Pressure [Le ft Arm] 99/66 108/75 96/60 Pulse Oximetry 96 98 96 Oxygen Delivery [facility] Room Air Room Air Room Air 11/15/24 06:12 11/15/24 08:15 Temperature 97.9 F 98.8 F Pulse Rate Pulse Rate [Pulse Oximeter] 63 85 Respiratory Rate 16 18 Blood Pressure Blood Pressure [Le ft Arm] 98/61 94/67 Pulse Oximetry 98 98 Oxygen Delivery [facility] Room Air Room Air OB - DS: Summary Hospital Course Hospital Course: The patient is a 29 year old G 3 P 2013 at 37 weeks gestation that was admitted to the Center on 11/13/24 for IOL for uncontrolled GDM A2. She had an uncomplicated vaginal delivery. She delivered a viable female . She is breast feeding. the patient has done well. She is planning to use Nexplanon for contraception at or after 6wks PP. Peripartum Data Infant delivery method: Vaginal Laceration description: Vaginal - 2nd Degree Episiotomy description: None complications: none Ceres Gender: Female Discharge Plan: Home Status at Discharge Functional status at discharge: independent ambulation Overall status at discharge: patient is progressing back to baseline Time Spent with Patient Time attestation: Total time spent providing and/or coordinating discharge services: 30min Time spent: Greater than 30 minutes Discharge Plan Discharge Disposition: Home, Self-Care Date of Admission: 11/13/24 16:22 Attending Provider on Discharge: Delores Delgado Primary Care Provider: Provider,Not a Local Condition: Stable Anticipated Discharge Date/Time: 11/15/24 09:27 Discharge Medications: New docusate sodium 100 mg Capsule 100 mg PO DAILY PRN (Reason: constipation) Qty: 30 0RF ibuprofen 600 mg Tablet 600 mg PO Q6H PRNQty: 60 0RF Continued Multi-DHA(with vit K) 27 mg iron-800 mcg-260 mg capsule 1 cap PO QDAY Discontinued Novolin N NPH U-100 Insulin 100 unit/mL suspension 54 unit subcut QPM insulin lispro 100 unit/mL insulin pen 4 unit subcut QAM (DME) pen needle, diabetic [UltiCare Pen Needle] 32 gauge x 5/32 needle See Rx Instructions .ROUTE .MEDSUPPLY Qty: 1200 Patient Comments: Use to inject 1-2 times daily with pen injector device. Each needle is for one time use only. For use with Humalog pens* Rx Instructions: As directed (DME) insulin syringe-needle U-100 [Ultra-Fine Insulin Syringe] 1 mL 31 gauge x 15/64 syringe See Rx Instructions .ROUTE DAILY Qty: 10 Rx Instructions: As directed (DME) BD Veo Insulin Syr (half unit) 0.3 mL 31 gauge x 15/64 syringe See Rx Instructions .ROUTE DAILY Qty: 10 Rx Instructions: As directed Discharge Orders: Discharge Order (Routine); Ordered 11/15/24 Ordered By: Delores Delgado Patient Education: OB Vaginal/Breast Feeding Additional Instructions: Discharge instructions were reviewed with the patient including signs and symptoms of infection and home going medications.? Lifting Restrictions: 20 pounds for 6? weeks? ?? Do not drive while taking narcotic pain meds.? Off Work or School for 6 weeks.? ?? Symptoms to report to doctor:? -Bleeding that saturates more than one pad per hour? -Passing clots larger than the size of a golf ball? -Pain not relieved by prescribed medication? -Fever above 100.4 degrees Fahrenheit? -A foul vaginal odor? -Difficulty in emotions, mood and functions? -Thoughts of hurting yourself and/or ? -Painful, reddened area in your breast? -Any drainage, redness or tenderness in your IV/epidural site? -Severe headache that doesn't improve after taking medications? -Changes in vision, including temporary loss of vision, blurred vision, and/or light sensitivity? -Upper abdominal pain (usually under ribs on the right side)? -Decrease in urination or painful, frequent urinating? -Chest pain? -Shortness of breath? -Tenderness or pain with redness and/swelling in the calf(s) of your leg? ?? Virtual or nurse visit in the clinic for a blood pressure check in 3-5 days.? Follow Up in clinic in 2 and 6 weeks.? ?? consultation services are available to all mothers and babies for the first year after delivery.? To make an appointment, please call [phone].? ? Activity Level: Activity as Tolerated Discharge Diet: Regular Follow Up Appointments: Provider,Not a Local [Primary Care Provider, Family Practice] Forms: Patient Belongings, MyHealth Info Instructions
[2024-11-15 12:00] VITALS: BP 103/66; PULSE 75; RESP 16; O2SAT 97
[2024-11-15] MEDS: DOCUSATE SODIUM 100 MG CAPSULE PO (12:07)
== END 2024-11-15 16:08 | disposition home or self-care (01) | DRG 560 ==
PROVIDERS: Obstetrics & Gynecology; Admitting Provider Obstetrics & Gynecology; Visit Provider Obstetrics & Gynecology
DX: O24.424 Gestational diabetes mellitus in childbirth, insulin controlled (principal); O99.824 Streptococcus B carrier state complicating childbirth; O99.344 Other mental disorders complicating childbirth; F41.1 Generalized anxiety disorder; O70.1 Second degree perineal laceration during delivery; Z3A.36 36 weeks gestation of pregnancy; Z37.0 Single live birth
CPT/HCPCS: 01967; 36415; 85018; 85025; 86592; 86850; 86900; 86901; 88307; A9270; C1726; J0290; J2270; J2795; J7120

== ENCOUNTER 2024-11-20 08:30 | Outpatient (CLI) | payer BC, SELFPAY ==
--- NOTE | 2024-11-20 09:36 | W.PM.LAC.MC ---
Consult Note - Mom Date of Visit Date of visit: 11/20/24 Reason for consultation: Assistance Needed and Breast/Nipple Issue Visit Code: Visit Patient's Information Phone number: [phone] : 3 Para: 2 Allergies sulfamethoxazole (From Bactrim) Allergy (Mild, Verified 11/13/24 16:50) trimethoprim (From Bactrim) Allergy (Mild, Verified 11/13/24 16:50) Mother's Medical History: Medical History (Updated 11/16/24 @ 00:00 by Background Daemon) GDM, class A2 ?O24.419 - Gestational diabetes mellitus in , unspecified control (ICD-10) History of miscarriage ?Z87.59 - Personal history of other complications of , childbirth and the puerperium (ICD-10) Benign neoplasm of skin ?D23.9 - Other benign neoplasm of skin, unspecified (ICD-10) Abdominal trauma ?S39.91XA - Unspecified injury of abdomen, initial encounter (ICD-10) Delivery Information Delivery type: Vaginal Gestational Age: 37 Gestational Weight For Age: AGA Weight: 3.15 kg Discharge Weight: 3.056 kg Percentage weight loss: 3 Baby's Information Baby's Age at Visit: 6 days Baby's Provider or Clinic: [facility] Jaundice: Yes Past Experience Past Experience: Yes (x6 mos, not a good experience) Current Frequency of Day Feedings: every 2-3 hrs day and night; waking self or feedings more Both Breasts: Yes (offering) Suck: strong Latch: painful Length of Time: 10-20 min ea side Pumping Pumping: Yes Quantity Pumped: getting 6 oz total after a feeding Supplementing EBM Supplement: Yes (occas, takes 2-3 oz) Formula Supplement: No Baby Elimination Number of Wet Diapers a Day: ea fdg or more Number of BM a Day: ea fdg or more; yellow/seedy Breast/Nipple Condition Breast Information: Breasts are symmetrical with rounded lower quadrants, intramammary distance is less than 1.5 inches. No erythema. Nipples are supple, everted prior to feeding. Breast Shape: Round and Firm Maternal Nipple Condition - Left: Common Nipple Maternal Nipple Condition - Right: Common Nipple Sore Nipples: Yes Interventions for Sore Nipples: Lansinoh/Nipple Cream Baby Assessment Skin: Normal and Yellow (to belly, less than yesterday) Tongue/frenulum: Normal/elastic Palate: Average Lips: Relaxed Jaw Alignment: Symmetrical Mucosa: [place], moist Onsite Observation Pre-Feed weight: 2.98 kg Post-Feed weight: 3.024 kg Milk Transferred (mL): 44 Position: Cross cradle Attachment/latch-on achieved: Easily Suck pattern: Suck burst and normal rest Swallow: Audible, consistent and Gulping Behavior following feed: Relaxed, sleepy Pre-Nursing Left Nipple: Crusting/Scabs Pre-Nursing Right Nipple: Crusting/Scabs Post-Nursing Left Nipple: Crusting/Scabs Post-Nursing Right Nipple: Crusting/Scabs Assessments/Interventions Assessments/Interventions: Marcelina latched to mom's RIGHT breast, latched well with repositioning and stayed nursing for 15 minutes. Transferred 44 ml of milk libertye was offered LEFT breast and would not latch for additional feeding despite waking techniques, diaper change, etc Babe needed gentle support to stay latched. Worked with mom/taught asymmetrical latch technique for a wide, deep latch and mom reports increased comfort with this; also discussed bringing baby to the breast vs leaning into baby's mouth. Discussed normals of ; milk coming in, regulation of supply, use of pump to relieve fullness if needed, but not to pump every feeding if not needed to prevent over supply. Cool packs after feeding may help breast congestion and reduce need for pumping. Hydrogels for nipple healing Ibuprofen for mom ok to help decrease breast discomfort as needed. Continue feeding every 2-3 hours; offer both breasts each feeding Ok to switch sides at 10-15 minutes to get baby to both breasts for mom to get relief and baby to get more milk Breast compression near end of feeding on ea breast o help encourage increased milk intake Education provided: Early feeding cues to maximize timing of latching, Asymmetric latch technique for wide/deep latch to increase milk, Transfer for baby and increase comfort for mom, Supply/demand nature of milk supply, Need for frequent stimulation/milk removal, Sore nipple treatment options, Alternative feeding methods (SNS, cup, finger feeding, bottling) (paced bottle feeding), Pumping for milk management and Milk collection, storage Follow-Up Suggested follow up: Appointment as needed Recommend baby be seen by provider for:: 2 week check up Time Spent Time spent with patient (min): 75 Meds Home Medications and Allergies Home Medications ?Medication ?Instructions ?Recorded ?Confirmed ?Type PNV no.151-iron 27 mg-folic 800 1 cap PO QDAY 11/08/24 11/13/24 History mcg-omega3 260 [id number] capsule ( Multi-DHA (with vitamin K)) docusate sodium 100 mg capsule 100 mg PO DAILY PRN constipation 11/15/24 Rx #30 caps ibuprofen 600 mg tablet 600 mg PO Q6H PRN #60 tabs 11/15/24 Rx Allergies Allergy/AdvReac Type Severity Reaction Status Date / Time sulfamethoxazole (From Allergy Mild Verified 11/13/24 16:50 Bactrim) trimethoprim (From Bactrim) Allergy Mild Verified 11/13/24 16:50
== END 2024-11-20 08:31 | disposition home or self-care (01) ==
LOC: OB LAC 08:31
PROVIDERS: Visit Provider Obstetrics & Gynecology
DX: Z39.1 Encounter for care and examination of lactating mother (principal)
CPT/HCPCS: G0463

== ENCOUNTER 2024-12-27 08:44 | Outpatient (CLI) | payer BC, SELFPAY | END 2024-12-27 08:45 | disposition home or self-care (01) | LOC: NFLDREF 12-28 19:54 | PROVIDERS: Visit Provider Registered Nurse | DX: O24.419 Gestational diabetes mellitus in pregnancy, unspecified control (principal) | CPT/HCPCS: 82947; 82950 ==